=== PATIENT | male | born 1950 | race Caucasian/White ===

== ENCOUNTER → 2017-01-25 | Outpatient (CLI) | payer OTHER ==
[2016-03-12 15:10] VITALS: BP 110/68
[~2017-01-25] MED LIST: AMIT50TA PO; ASPI-482 PO; COLE1TAB2 PO; DAPA5TAB PO; DEXL60CA PO; DULA1.5P SQ; GLYB1TAB10 PO; HYDR-2679 PO; LISI1TAB7 PO; METF500T4 PO; SERT50TA8 PO; [UNRECOGNIZED DRUG - OTHER]
[2017-01-25 09:49] LABS: CALCIUM 9.1 mg/dL (8.5-10.1); CREATININE 0.7 mg/dL (0.7-1.3); GFR 113.5; POTASSIUM 3.5 mmol/L (3.5-5.1)
[2017-01-25 09:51] LABS: CHOLESTEROL/HDL RATIO 3.1
== END | disposition home or self-care (01) ==
LOC: LAB 09:09
PROVIDERS: ATTEND Family Medicine
DX: E11.9 Type 2 diabetes mellitus without complications (principal)
CPT/HCPCS: 36415; 80048; 80061; 83036

== ENCOUNTER → 2017-04-27 | Outpatient (CLI) | payer OTHER ==
[2016-03-12 15:10] VITALS: BP 110/68
[~2017-04-27] MED LIST changes: +GADOBUTROL 10 MMOL/10 ML VIAL IV ONE; -GLYB1TAB10 PO; +GLYB1TAB15 PO
[2017-04-27 13:46] LABS: CREATININE 0.9 mg/dL (0.7-1.3)
--- NOTE | 2017-04-27 14:53 | RAD ---
MR BRAIN HISTORY: DIPLOPIA X 3 WEEKS WITH WORSENING HEADACHES, RIGHT EYE DISCOMFORT, NO SX HX, PRIOR MRI, 9ML GADAVIST COMPARISON: 02/19/2015 MRI brain TECHNIQUE: Axial diffusion weighted imaging was obtained. Additional sagittal T1, axial T1, axial FLAIR, and axial T2 weighted imaging of the brain was also performed. FINDINGS: There are scattered foci of T2/FLAIR signal hyperintensity throughout the periventricular and deep hemispheric white matter bilaterally. This is nonspecific but most likely related to chronic small vessel ischemic disease. No evidence of acute intracranial hemorrhage. No restricted diffusion to indicate acute infarct. No extra-axial fluid collections. No midline shift or mass effect. Ventricular size is appropriate. Midline structures have a normal anatomic configuration. Basal cisterns are patent. Arterial flow voids at the skull base and major dural venous sinuses are maintained. Globes and orbits are unremarkable. Paranasal sinuses and mastoid air cells are clear. IMPRESSION: No acute or recent infarct. No abnormal enhancement or mass. Electronically signed by: Marshall Kingsley MD (04/27/2017 2:50 PM)
== END | disposition home or self-care (01) ==
LOC: MRI 12:47
PROVIDERS: ATTEND Otolaryngology Plastic Surgery within the Head & Neck
DX: H53.2 Diplopia (principal)
CPT/HCPCS: 36415; 70553; 82565; A9585

== ENCOUNTER → 2017-06-01 | Outpatient (CLI) | payer OTHER ==
[2016-03-12 15:10] VITALS: BP 110/68
[~2017-06-01] MED LIST changes: -DEXL60CA PO; +DEXL60CA2 PO; -GADOBUTROL 10 MMOL/10 ML VIAL IV ONE
[2017-06-01 09:34] LABS: ALBUMIN 3.7 g/dL (3.4-5.0); ALBUMIN/GLOBULIN RATIO 0.9 (1.0-1.7); CALCIUM 8.3 mg/dL (8.5-10.1); CREATININE 0.7 mg/dL (0.7-1.3); GFR 113.5; POTASSIUM 3.7 mmol/L (3.5-5.1); TOTAL BILIRUBIN 1.3 mg/dL (0.2-1.0); TOTAL PROTEIN 7.8 g/dL (6.4-8.2)
== END | disposition home or self-care (01) ==
LOC: LAB 08:56
PROVIDERS: ATTEND Family Medicine
DX: E11.9 Type 2 diabetes mellitus without complications (principal)
CPT/HCPCS: 36415; 80053; 83036

== ENCOUNTER → 2017-06-22 | Outpatient (CLI) | payer OTHER ==
[2016-03-12 15:10] VITALS: BP 110/68
[2017-06-22 09:45] LABS: BASO % 0 % (0-3); EOS % 1 % (0-3); HEMATOCRIT 43.3 % (39.0-53.0); HEMOGLOBIN 14.7 g/dL (13.0-17.5); LYMPH # 1.5 x10^3/uL (1.0-4.8); LYMPH % 24 % (24-48); MEAN CORPUSCULAR HEMOGLOBIN 29 pg (25-35); MEAN CORPUSCULAR HGB CONC 34 g/dL (31-37); MEAN CORPUSCULAR VOLUME 84 fL (79-100); MONO % 8 % (0-9); NEUT % 67 % (31-73); PLATELET COUNT 134 x10^3/uL (140-400); RED BLOOD COUNT 5.15 x10^6/uL (4.30-5.70); RED CELL DISTRIBUTION WIDTH 15.5 % (11.5-14.5)
[2017-06-22 09:53] LABS: WHITE BLOOD COUNT 6.4 x10^3/uL (4.0-11.0)
[2017-06-22 10:09] LABS: CALCIUM 8.6 mg/dL (8.5-10.1); CREATININE 0.7 mg/dL (0.7-1.3); GFR 113.5; POTASSIUM 3.7 mmol/L (3.5-5.1); TOTAL BILIRUBIN 1.2 mg/dL (0.2-1.0)
--- NOTE | 2017-06-22 11:25 | RAD ---
Indication: Worsening headaches Technique: Study is dated June 22, 2017. 3-D time of flight MRA of the [place] of [place] was performed without contrast. Source and MIP reconstructed images were reviewed. Comparison is an MRI brain from April 27, 2013. Findings: The visualized internal carotid arteries are normal in caliber without focal stenosis. The bilateral anterior and middle cerebral arteries are normal in caliber without focal stenosis or aneurysm. The vertebral, basilar, and posterior cerebral arteries are normal in caliber without focal stenosis or aneurysm. There is a origin of the left posterior cerebral artery. Impression: Normal intracranial MRA. Electronically signed by: Tito Jackson MD (06/22/2017 11:22 AM) [facility]
[2017-06-22 18:21] LABS: HIV ANTIBODY Non Reactive (Non Reactive)
== END | disposition home or self-care (01) ==
LOC: MRI 09:08
PROVIDERS: ATTEND Psychiatry & Neurology Neuromuscular Medicine
DX: G43.919 Migraine, unspecified, intractable, without status migrainosus (principal)
CPT/HCPCS: 70544; 80053; 82607; 84443; 85027; 85651; 86701; 86702; 86703; 87535

== ENCOUNTER → 2017-09-02 | Outpatient (CLI) | payer OTHER ==
[2016-03-12 15:10] VITALS: BP 110/68
[2017-09-02 10:26] LABS: ALBUMIN 3.7 g/dL (3.4-5.0); ALBUMIN/GLOBULIN RATIO 0.9 (1.0-1.7); CALCIUM 8.7 mg/dL (8.5-10.1); CREATININE 0.7 mg/dL (0.7-1.3); GFR 113.5; POTASSIUM 3.9 mmol/L (3.5-5.1); TOTAL BILIRUBIN 1.2 mg/dL (0.2-1.0); TOTAL PROTEIN 7.9 g/dL (6.4-8.2)
== END | disposition home or self-care (01) ==
LOC: LAB 09:31
PROVIDERS: ATTEND Family Medicine
DX: E11.9 Type 2 diabetes mellitus without complications (principal)
CPT/HCPCS: 36415; 80053; 83036

== ENCOUNTER → 2017-10-26 | Outpatient (CLI) | payer OTHER ==
[2016-03-12 15:10] VITALS: BP 110/68
[2017-10-26 09:40] LABS: ALBUMIN 3.7 g/dL (3.4-5.0); ALBUMIN/GLOBULIN RATIO 0.9 (1.0-1.7); CALCIUM 9.1 mg/dL (8.5-10.1); CREATININE 0.6 mg/dL (0.7-1.3); GFR 135.6; POTASSIUM 3.9 mmol/L (3.5-5.1); TOTAL PROTEIN 7.9 g/dL (6.4-8.2)
== END | disposition home or self-care (01) ==
LOC: LAB 09:04
PROVIDERS: ATTEND Family Medicine
DX: I10 Essential (primary) hypertension (principal); E11.39 Type 2 diabetes mellitus with other diabetic ophthalmic complication
CPT/HCPCS: 36415; 80053; 83036

== ENCOUNTER → 2017-11-18 | Outpatient (CLI) | payer OTHER | END | disposition home or self-care (01) | LOC: ECHO 13:51 | DX: R01.1 Cardiac murmur, unspecified (principal) | CPT/HCPCS: 93306 ==

== ENCOUNTER → 2018-02-03 | Outpatient (CLI) | payer OTHER ==
[2018-02-03 09:13] LABS: ADD MAN DIFF? NO
[2018-02-03 09:17] LABS: BASO % 1 % (0-3); EOS # 0.1 x10^3/uL (0.0-0.7); EOS % 1 % (0-3); HEMATOCRIT 40.9 % (39.0-53.0); HEMOGLOBIN 13.7 g/dL (13.0-17.5); LYMPH # 1.7 x10^3/uL (1.0-4.8); LYMPH % 33 % (24-48); MEAN CORPUSCULAR HEMOGLOBIN 29 pg (25-35); MEAN CORPUSCULAR HGB CONC 34 g/dL (31-37); MEAN CORPUSCULAR VOLUME 85 fL (79-100); MONO # 0.5 x10^3/uL (0.0-1.1); MONO % 10 % (0-9); NEUT # 2.8 x10^3uL (1.8-7.7); NEUT % 56 % (31-73); PLATELET COUNT 142 x10^3/uL (140-400); RED BLOOD COUNT 4.83 x10^6/uL (4.30-5.70); RED CELL DISTRIBUTION WIDTH 15.8 % (11.5-14.5); WHITE BLOOD COUNT 5.1 x10^3/uL (4.0-11.0)
[2018-02-03 09:36] LABS: ALBUMIN 3.5 g/dL (3.4-5.0); ALBUMIN/GLOBULIN RATIO 0.8 (1.0-1.7); ALK PHOS 111 U/L (46-116); ALT (SGPT) 61 U/L (16-63); ANION GAP 8 (6-14); AST (SGOT) 55 U/L (15-37); BLOOD UREA NITROGEN 15 mg/dL (8-26); BUN/CREATININE RATIO 21 (6-20); CALCIUM 9.2 mg/dL (8.5-10.1); CARBON DIOXIDE 27 mmol/L (21-32); CHLORIDE 104 mmol/L (98-107); CHOLESTEROL 116 mg/dL (0-200); CHOLESTEROL/HDL RATIO 3.2; CREATININE 0.7 mg/dL (0.7-1.3); GFR 113.2; GLUCOSE 140 mg/dL (70-99); HDLC 36 mg/dL (40-60); LDLC 55 mg/dL (0-100); NON-HDL CHOLESTEROL 80 mg/dL (0-129); POTASSIUM 3.9 mmol/L (3.5-5.1); SODIUM 139 mmol/L (136-145); TOTAL BILIRUBIN 1.1 mg/dL (0.2-1.0); TRIGLYCERIDES 124 mg/dL (0-150); VLDLC 25 mg/dL (0-40)
[2018-02-03 10:09] LABS: PROSTATE SPECIFIC ANTIGEN 0.48 ng/mL (0.00-4.00)
[2018-02-04 00:13] LABS: HEMOGLOBIN A1C 5.6 % (4.8-5.6)
== END | disposition home or self-care (01) ==
LOC: LAB 08:58
DX: Z12.5 Encounter for screening for malignant neoplasm of prostate (principal); E11.9 Type 2 diabetes mellitus without complications; I10 Essential (primary) hypertension
CPT/HCPCS: 36415; 80053; 80061; 83036; 85025; G0103

== ENCOUNTER → 2018-04-29 | Outpatient (CLI) | payer OTHER ==
[2018-04-29 10:01] LABS: ANION GAP 13 (6-14); BLOOD UREA NITROGEN 15 mg/dL (8-26); CARBON DIOXIDE 22 mmol/L (21-32); CHLORIDE 101 mmol/L (98-107); CREATININE 0.7 mg/dL (0.7-1.3); GFR 113.2; GLUCOSE 163 mg/dL (70-99); POTASSIUM 3.5 mmol/L (3.5-5.1); SODIUM 136 mmol/L (136-145)
[2018-04-30 02:17] LABS: HEMOGLOBIN A1C 6.6 % (4.8-5.6)
== END | disposition home or self-care (01) ==
LOC: LAB 09:23
DX: E11.9 Type 2 diabetes mellitus without complications (principal); I10 Essential (primary) hypertension
CPT/HCPCS: 36415; 80048; 83036

== ENCOUNTER → 2018-08-10 | Outpatient (CLI) | payer OTHER ==
[2016-03-12 15:10] VITALS: BP 110/68
[~2018-08-10] MED LIST changes: +GLYB-102 PO; -GLYB1TAB15 PO; +METF500T16 PO; -METF500T4 PO
[2018-08-10 09:48] LABS: CALCIUM 8.9 mg/dL (8.5-10.1); CREATININE 0.6 mg/dL (0.7-1.3); GFR 135.2; POTASSIUM 3.9 mmol/L (3.5-5.1)
[2018-08-11 03:16] LABS: HEMOGLOBIN A1C 6.2 % (4.8-5.6)
== END | disposition home or self-care (01) ==
LOC: LAB 09:18
PROVIDERS: ATTEND Family Medicine
DX: I10 Essential (primary) hypertension (principal); E11.9 Type 2 diabetes mellitus without complications; E55.9 Vitamin D deficiency, unspecified; E78.5 Hyperlipidemia, unspecified; E78.00 Pure hypercholesterolemia, unspecified; E87.6 Hypokalemia; G43.909 Migraine, unspecified, not intractable, without status migrainosus; K21.9 Gastro-esophageal reflux disease without esophagitis; Z86.010 Personal history of colon polyps; Z88.0 Allergy status to penicillin; Z82.49 Family history of ischemic heart disease and other diseases of the circulatory system; Z83.3 Family history of diabetes mellitus
CPT/HCPCS: 36415; 80048; 83036

== ENCOUNTER 2018-09-13 08:46 | Emergency (ER) | payer MEDICARE, OTHER ==
[~2018-09-13] VITALS: Ht 170.2 cm; Wt 95.3 kg
[2018-09-13] MEDS ORDERED: fentaNYL PF VIAL 100 MCG/2 ML VIAL IV ONE (09:00)
[2018-09-13 09:26] LABS: BASO % 1 % (0-3); EOS % 2 % (0-3); HEMATOCRIT 34.2 % (39.0-53.0); HEMOGLOBIN 11.8 g/dL (13.0-17.5); LYMPH % 30 % (24-48); MEAN CORPUSCULAR HEMOGLOBIN 30 pg (25-35); MEAN CORPUSCULAR HGB CONC 35 g/dL (31-37); MEAN CORPUSCULAR VOLUME 85 fL (79-100); MONO # 0.3 x10^3/uL (0.0-1.1); MONO % 9 % (0-9); NEUT # 1.9 x10^3uL (1.8-7.7); NEUT % 59 % (31-73); PLATELET COUNT 97 x10^3/uL (140-400); RED BLOOD COUNT 4.01 x10^6/uL (4.30-5.70); RED CELL DISTRIBUTION WIDTH 16.3 % (11.5-14.5); WHITE BLOOD COUNT 3.3 x10^3/uL (4.0-11.0)
[2018-09-13 09:32] LABS: CALCIUM 8.4 mg/dL (8.5-10.1); CREATININE 0.7 mg/dL (0.7-1.3); GFR 113.2; POTASSIUM 3.7 mmol/L (3.5-5.1)
[2018-09-13 09:38] LABS: ALBUMIN 3.3 g/dL (3.4-5.0); ALBUMIN/GLOBULIN RATIO 0.8 (1.0-1.7); TOTAL BILIRUBIN 1.1 mg/dL (0.2-1.0); TOTAL PROTEIN 7.3 g/dL (6.4-8.2)
[2018-09-13] MEDS ORDERED: METH4TAB2 PO (09:51)
--- NOTE | 2018-09-13 09:52 | PHYS DOC ---
Past Medical History Past Medical History: Diabetes-Type II, Hypertension Past Surgical History: Other Additional Past Surgical Histo: BILATERAL CATARACT SX Alcohol Use: Rarely Drug Use: None Adult General Chief Complaint Chief Complaint: BACK PAIN OR INJURY HPI HPI Patient is a 67 year old male who presents with right lower back pain. The patient states that he was carrying a bucket of water to his fire pit when he felt it hold in his back. He does have a history of sciatica. He also has a history of bulging disks. He denies any point spinal tenderness. He states that the pain is radiating in through his buttock and down into his leg. He states that this morning the pain got severe enough that he could not get out of bed. He day he did call EMS to have him transported to the hospital. The patient does take hydrocodone regularly at home for pain. Review of Systems Review of Systems Constitutional: Denies fever or chills [] Respiratory: Denies cough or shortness of breath [] Cardiovascular: No additional information not addressed in HPI [] GI: Denies abdominal pain, nausea, vomiting, bloody stools or diarrhea [] : Denies dysuria or hematuria [] Musculoskeletal: See history of present illness Integument: Denies rash or skin lesions [] Neurologic: Denies headache, focal weakness or sensory changes [] Endocrine: Denies polyuria or polydipsia [] All other systems were reviewed and found to be within normal limits, except as documented in this note. Current Medications Current Medications Current Medications Medications (Trade) Dose Ordered Sig/[facility] Start Time Stop Time Status Last Admin Dose Admin Fentanyl Citrate (Fentanyl 2ml Vial) 75 mcg 1X ONCE 09/13/18 09:00 09/13/18 09:02 DC 09/13/18 09:35 75 MCG Ketorolac Tromethamine (Toradol Im) 60 mg 1X ONCE 09/13/18 10:00 09/13/18 10:01 DC 09/13/18 11:01 60 MG Morphine Sulfate (Morphine Sulfate) 5 mg 1X ONCE 09/13/18 14:15 09/13/18 14:16 DC 09/13/18 14:15 5 MG Ondansetron HCl (Zofran) 4 mg 1X ONCE 09/13/18 12:30 09/13/18 13:44 DC 09/13/18 15:05 4 MG Oxycodone/ Acetaminophen (Percocet 10/325) 1 tab 1X ONCE 09/13/18 15:00 09/13/18 15:01 DC 09/13/18 15:06 1 TAB Allergies Allergies Allergies Coded Allergies Type Severity Reaction Last Updated Verified Penicillins Allergy Severe Anaphylaxis 03/12/16 Yes Physical Exam Physical Exam Constitutional: Well developed, well nourished, no acute distress, non-toxic appearance. [] Neck: Normal range of motion, no tenderness, supple, no stridor. [] Cardiovascular:Heart rate regular rhythm, no murmur [] Lungs & Thorax: Bilateral breath sounds clear to auscultation [] Skin: Warm, dry, no erythema, no rash. [] Back: No point spinal tenderness, right CVA tenderness. [] Extremities: No tenderness, no cyanosis, no clubbing, ROM intact, no edema. [] Neurologic: Alert and oriented X 3, normal motor function, normal sensory function, no focal deficits noted. [] Psychologic: Affect normal, judgement normal, mood normal. [] Current Patient Data Vital Signs Vital Signs Date Time Temp Pulse Resp B/P (MAP) Pulse Ox O2 Delivery O2 Flow Rate FiO2 09/13/18 15:06 18 98 Room Air 09/13/18 14:30 78 128/64 (85) Lab Values Laboratory Tests Test 09/13/18 09:13 White Blood Count 3.3 x10^3/uL (4.0-11.0) L Red Blood Count 4.01 x10^6/uL (4.30-5.70) L Hemoglobin 11.8 g/dL (13.0-17.5) L Hematocrit 34.2 % (39.0-53.0) L Mean Corpuscular Volume 85 fL (79-100) Mean Corpuscular Hemoglobin 30 pg (25-35) Mean Corpuscular Hemoglobin Concent 35 g/dL (31-37) Red Cell Distribution Width 16.3 % (11.5-14.5) H Platelet Count 97 x10^3/uL (140-400) L Neutrophils (%) (Auto) 59 % (31-73) Lymphocytes (%) (Auto) 30 % (24-48) Monocytes (%) (Auto) 9 % (0-9) Eosinophils (%) (Auto) 2 % (0-3) Basophils (%) (Auto) 1 % (0-3) Neutrophils # (Auto) 1.9 x10^3uL (1.8-7.7) Lymphocytes # (Auto) 1.0 x10^3/uL (1.0-4.8) Monocytes # (Auto) 0.3 x10^3/uL (0.0-1.1) Eosinophils # (Auto) 0.0 x10^3/uL (0.0-0.7) Basophils # (Auto) 0.0 x10^3/uL (0.0-0.2) Sodium Level 141 mmol/L (136-145) Potassium Level 3.7 mmol/L (3.5-5.1) Chloride Level 104 mmol/L (98-107) Carbon Dioxide Level 23 mmol/L (21-32) Anion Gap 14 (6-14) Blood Urea Nitrogen 15 mg/dL (8-26) Creatinine 0.7 mg/dL (0.7-1.3) Estimated GFR (Cockcroft-Gault) 113.2 BUN/Creatinine Ratio 21 (6-20) H Glucose Level 178 mg/dL (70-99) H Calcium Level 8.4 mg/dL (8.5-10.1) L Total Bilirubin 1.1 mg/dL (0.2-1.0) H Aspartate Amino Transferase (AST) 58 U/L (15-37) H Alanine Aminotransferase (ALT) 53 U/L (16-63) Alkaline Phosphatase 118 U/L (46-116) H Total Protein 7.3 g/dL (6.4-8.2) Albumin 3.3 g/dL (3.4-5.0) L Albumin/Globulin Ratio 0.8 (1.0-1.7) L Laboratory Tests 09/13/18 09:13 Laboratory Tests 09/13/18 09:13 EKG EKG [] Radiology/Procedures Radiology/Procedures []PATIENT: EMILIANO JACOBO LACCOUNT: [id number]#: [id number] : 1950 LOCATION: ER AGE: 67 SEX: M EXAM STATUS: REG ER ORD. PHYSICIAN: MAYNOR LUKE APRN REASON: pain after lifting water bucket PROCEDURE: CT LUMBAR SPINE WO CONTRAST EXAM: CT lumbar spine without IV contrast CLINICAL HISTORY:INJURED LIFTING A WATER BUCKET. COMPARISON: None available. TECHNIQUE: Helical CT was performed through the lumbar spine. Axial, coronal and sagittal reformatted images were generated. PQRS compliance statement - One or more of the following individualized dose reduction techniques were utilized for this study: 1. Automated exposure control 2. Adjustment of the mA and/or kV according to patient size 3. Use of iterative reconstruction technique FINDINGS: There are 5 nonrib-bearing lumbar-type vertebral bodies. Vertebral body heights are preserved. Mild L1-2 intervertebral disc height loss. Small anterior endplate osteophytes are seen at multiple levels. No spondylolisthesis. Unilateral left L5 pars defect is seen. No definite right L5 pars defect. A right L4 pars defects is also incidentally seen. These are chronic. T12-L1: No significant central canal stenosis or neural foraminal narrowing. L1-L2: Diffuse circumferential disc bulge, ligamentum flavum hypertrophy and mild flattening of the ventral thecal sac mild central canal stenosis, and mild bilateral neural foraminal narrowing. L2-L3: No significant central canal stenosis or neural foraminal narrowing. L3-L4: Mild diffuse circumferential disc bulge causes mild flattening of the central canal with mild left and moderate right neural foraminal narrowing. L4-L5: Diffuse circumferential disc bulge, eccentric to the left, ligamentum flavum hypertrophy and facet degenerative changes cause mild central canal stenosis and mild bilateral neural foraminal narrowing. L5-S1: No significant central canal stenosis or neural foraminal narrowing. IMPRESSION: 1. No evidence for acute fracture or subluxation. 2. Chronic left L5 and right L4 pars defects without listhesis. 3. Multilevel degenerative change as above, most prominent at L1-2 Electronically signed by: Jose Rodriguez MD (09/13/2018 12:46 PM) [facility] DICTATED and SIGNED BY: JOSE RODRIGUEZ MD DATE: 09/13/18 123 Course & Med Decision Making Course & Med Decision Making Pertinent Labs and Imaging studies reviewed. (See chart for details) []He patient was given IV and oral pain medication in the emergency department. Dragon Disclaimer Dragon Disclaimer This electronic medical record was generated, in whole or in part, using a voice recognition dictation system. Departure Departure Impression: Primary Impression: Sciatica Disposition: 01 HOME, SELF-CARE Condition: STABLE Referrals: Bobo BURLESON MD (PCP) Patient Instructions: Sciatica Additional Instructions: Take the medication as directed. Watch your blood sugars very closely while on this medication. Follow-up with your primary care provider in one week for recheck or return to the emergency department if worsening. Scripts Oxycodone/Apap 5-325 (PERCOCET 5-325 MG TABLET) 1 Each Tablet 1 TAB PO PRN Q6HRS PRN for PAIN, #14 TAB 0 Refills Prov: MAYNOR LUKE APRN 09/13/18 Methylprednisolone (MEDROL) 4 Mg Tab.ds.pk 1 PKG PO UD, #1 PKG Prov: MAYNOR LUKE APRN 09/13/18 MAYNOR LUKE APRN Sep 13, 2018 09:52
[2018-09-13] MEDS ORDERED: KETOROLAC 60 MG/2 ML INJ. IM ONE (10:00)
[2018-09-13] MEDS ORDERED: MORPHINE SULFATE 10 MG/ML VIAL. IV ONE ×2 (11:00→14:15)
[2018-09-13] MEDS ORDERED: oxyCODONE/APAP 10/325 1 TAB TABLET PO ONE ×2 (11:15→15:00)
[2018-09-13] MEDS ORDERED: ONDANSETRON PF 4 MG/2 ML VIAL. ONE (11:22)
[2018-09-13] MEDS ORDERED: ONDANSETRON PF 4 MG/2 ML VIAL. IV ONE (12:30)
--- NOTE | 2018-09-13 12:58 | RAD ---
EXAM: CT lumbar spine without IV contrast CLINICAL HISTORY:INJURED LIFTING A WATER BUCKET. COMPARISON: None available. TECHNIQUE: Helical CT was performed through the lumbar spine. Axial, coronal and sagittal reformatted images were generated. PQRS compliance statement - One or more of the following individualized dose reduction techniques were utilized for this study: 1. Automated exposure control 2. Adjustment of the mA and/or kV according to patient size 3. Use of iterative reconstruction technique FINDINGS: There are 5 nonrib-bearing lumbar-type vertebral bodies. Vertebral body heights are preserved. Mild L1-2 intervertebral disc height loss. Small anterior endplate osteophytes are seen at multiple levels. No spondylolisthesis. Unilateral left L5 pars defect is seen. No definite right L5 pars defect. A right L4 pars defects is also incidentally seen. These are chronic. T12-L1: No significant central canal stenosis or neural foraminal narrowing. L1-L2: Diffuse circumferential disc bulge, ligamentum flavum hypertrophy and mild flattening of the ventral thecal sac mild central canal stenosis, and mild bilateral neural foraminal narrowing. L2-L3: No significant central canal stenosis or neural foraminal narrowing. L3-L4: Mild diffuse circumferential disc bulge causes mild flattening of the central canal with mild left and moderate right neural foraminal narrowing. L4-L5: Diffuse circumferential disc bulge, eccentric to the left, ligamentum flavum hypertrophy and facet degenerative changes cause mild central canal stenosis and mild bilateral neural foraminal narrowing. L5-S1: No significant central canal stenosis or neural foraminal narrowing. IMPRESSION: 1. No evidence for acute fracture or subluxation. 2. Chronic left L5 and right L4 pars defects without listhesis. 3. Multilevel degenerative change as above, most prominent at L1-2 Electronically signed by: Jose Murray MD (09/13/2018 12:46 PM) [facility]
[2018-09-13] MEDS ORDERED: OXYC-323 PO (14:08)
[2018-09-13 14:30] VITALS: BP 128/64
== END 2018-09-13 15:14 | disposition home or self-care (01) ==
LOC: ER 08:46
DX: M54.30 Sciatica, unspecified side (principal); I10 Essential (primary) hypertension; E11.9 Type 2 diabetes mellitus without complications; Z88.0 Allergy status to penicillin
CPT/HCPCS: 36415; 72131; 80053; 85025; 96372; 96374; 96375; 96376; 99285; J1885; J2270; J2405; J3010

== ENCOUNTER 2018-10-17 10:13 | Day surgery (SDC) | payer OTHER, MEDICARE ==
[~2018-10-17 10:13] MED LIST changes: +ASPI-630 PO; +HYDROmorphone 2 MG/ML VIAL IV PRN; +IV RINGERS,LACTATED 1000ML 1,000 ML IV SCH; +LIDOCAINE 1% PF 2 ML VIAL. ID PRN; +LISI1TAB5 PO; +METH4TAB2 PO; +MORPHINE SULFATE 2 MG/ML VIAL. IV PRN; +ONDANSETRON PF 4 MG/2 ML VIAL. IV PRN; +OXYC1TAB15 PO; +PROCHLORPERAZINE 10 MG/2 ML VIAL. IV PRN; +fentaNYL PF VIAL 100 MCG/2 ML VIAL IV PRN
[2018-10-17 10:38] LABS: BASO % 1 % (0-3); EOS % 1 % (0-3); HEMATOCRIT 35.9 % (39.0-53.0); HEMOGLOBIN 12.1 g/dL (13.0-17.5); LYMPH # 1.4 x10^3/uL (1.0-4.8); LYMPH % 33 % (24-48); MEAN CORPUSCULAR HEMOGLOBIN 28 pg (25-35); MEAN CORPUSCULAR HGB CONC 34 g/dL (31-37); MEAN CORPUSCULAR VOLUME 84 fL (79-100); MONO # 0.4 x10^3/uL (0.0-1.1); MONO % 9 % (0-9); NEUT # 2.3 x10^3uL (1.8-7.7); NEUT % 57 % (31-73); PLATELET COUNT 108 x10^3/uL (140-400); RED BLOOD COUNT 4.26 x10^6/uL (4.30-5.70); RED CELL DISTRIBUTION WIDTH 15.7 % (11.5-14.5); WHITE BLOOD COUNT 4.1 x10^3/uL (4.0-11.0)
[2018-10-17] MEDS ORDERED: fentaNYL PF VIAL 100 MCG/2 ML VIAL ONE ×2 (11:24→14:08)
[2018-10-17] MEDS ORDERED: ROCURONIUM 100 MG/10 ML VIAL. ONE (11:24)
[2018-10-17] MEDS ORDERED: LIDOCAINE 2% PF Vial for OR 5 ML VIAL. ONE (11:24)
[2018-10-17] MEDS ORDERED: PROPOFOL 20 ML IV ONE (11:24)
[2018-10-17] MEDS ORDERED: PROPOFOL 100 ML IV ONE (12:18)
[2018-10-17] MEDS ORDERED: NEOMY/BACITR/POLYMYXIN OINT PACKET. TP ONE (12:20)
[2018-10-17] MEDS ORDERED: OXYMETAZOLINE 0.05% NASAL SPRAY 30ML BOTTLE. NS ONE (12:20)
[2018-10-17] MEDS ORDERED: LIDOCAINE 2%/EPI 1:100,000 20 ML VIAL. ONE (12:20)
[2018-10-17] MEDS ORDERED: GELATIN SPONGE SIZE 100. ONE (12:21)
[2018-10-17] MEDS ORDERED: COCAINE 4% TOPICAL SOLUTION TP ONE (12:49)
[2018-10-17] MEDS ORDERED: ONDANSETRON PF 4 MG/2 ML VIAL. ONE (13:02)
[2018-10-17] MEDS ORDERED: GLYCOPYRROLATE 1 MG/5 ML VIAL. ONE (13:02)
[2018-10-17] MEDS ORDERED: NEOSTIGMINE METHYLSULFATE 5 MG/5 ML SYRINGE. ONE (13:02)
--- NOTE | 2018-10-17 13:10 | DISCH ---
DISCHARGE WITH HOME HEALTH DISCHARGE INFORMATION: Condition on Discharge: Stable CODE STATUS: Code Status: Full HOME HEALTH: Face to Face: I certify this patient is under my care and that I, or a nurse practitioner or physician's senior court office assistant working with me, had a face to face encounter that meets the physician face to face encounter requirements with this patient on []. POST DISCHARGE ORDERS: Activity Instructions for Disc: Resume previous activity DIET AFTER DISCHARGE: Regular Wound/Incision Care: Reinforce dressing PRN, No wound care needed FOLLOW-UP: Follow up with: Abhay 1 week CERTIFICATION STATEMENT: Certification Statement: Certification Statement: Based on the above finding, I certify that this patient is confined to the home and needs intermittent longterm care, physical therapy and/or speech therapy, or continues to need occupational therapy.~ This patient is under my care, and I have initiated the establishment of the plan of care.~ This patient will be followed by myself or a community physician who will periodically review the plan of care. Home Meds Active Scripts Oxycodone/Apap 5-325 (PERCOCET 5-325 MG TABLET) 1 Each Tablet, 1 TAB PO PRN Q6HRS PRN for PAIN, #14 TAB 0 Refills Prov:MAYNOR LUKE Wendie CHORE WORKER 09/13/18 Reported Medications Aspirin (ASPIRIN) 81 Mg Tab.chew, 81 MG PO DAILY for HEART HEALTH, TAB.CHEW 10/12/18 Lisinopril/Hydrochlorothiazide (LISINOPRIL-HCTZ 20-12.5 MG TAB) 1 Each Tablet, 1 TAB PO DAILY for HYPERTENSION CONTROL, #90 TAB 3 Refills 10/12/18 Dapagliflozin Propanediol (FARXIGA) 5 Mg Tablet, 5 MG PO 02/26/16 Sertraline Hcl (SERTRALINE HCL) 50 Mg Tablet, 100 MG PO DAILY for ANTI- DEPRESSANT, TAB 0 Refills 02/26/16 Metformin Hcl (METFORMIN HCL) 500 Mg Tablet, 1000 MG PO BID92 for DIABETES CONTROL, TAB 0 Refills 11/18/15 Dulaglutide (Trulicity) 1.5 Mg/0.5 Ml Pen.injctr, 1.5 MG SQ WEEKLY for DIABETES CONTROL 11/18/15 Colestipol Hcl (COLESTIPOL HCL) 1 Gm Tablet, 1 GM PO BIDACLD for STOMACH ISSUES 01/03/14 Amitriptyline Hcl (AMITRIPTYLINE HCL) 50 Mg Tablet, 50 MG PO HS 01/03/14 Discontinued Reported Medications Hydrocodone/Acetaminophen (Lortab 7.5-325 mg Tablet) 1 Each Tablet, 1 TAB PO PRN Q6HRS PRN for PAIN, TAB 0 Refills 02/26/16 [asd fnnedfb ed ] No Conflict Check 01/03/14 Lisinopril/Hydrochlorothiazide (LISINOPRIL-HCTZ 20-25 MG TAB) 1 Each Tablet, 1 EACH PO DAILY 01/03/14 JADIEL PACE MD Oct 17, 2018 13:10
[2018-10-17] MEDS ORDERED: HYDR-3164 PO (13:12)
[2018-10-17] MEDS ORDERED: CLIN300C8 PO (13:14)
[2018-10-17] MEDS ORDERED: ASPI-630 PO (13:18)
[2018-10-17] MEDS ORDERED: HYDROcodone/APAP 5/325MG 1 TAB TABLET PO ONE (14:45)
[2018-10-17 15:30] VITALS: BP 121/63
--- NOTE | 2018-10-19 04:11 | CONS ---
DATE OF CONSULTATION: 10/17/2018 PREOPERATIVE DIAGNOSES: 1. Recurring epistaxis. 2. Septal deviation. POSTOPERATIVE DIAGNOSES: 1. Recurring epistaxis. 2. Septal deviation. PROCEDURE: Septoplasty. DESCRIPTION OF PROCEDURE: The patient was brought to the Operating Room and placed in the supine position. General anesthesia was obtained. Mask inhalation was provided. An oral endotracheal tube was inserted. The patient was scrubbed and draped for septoplasty, 1% lidocaine with 1:100,000 epinephrine was infiltrated in the septal mucosa bilaterally, 4% cocaine pledgets were placed intranasally. After anesthesia and decongestion were achieved, the pledgets were removed. The left nasal cavity was examined. He had a severe septal deviation to the right. There was prominent vascularity present on the septum on the right side. A Zack incision was made on the patient's left side. A submucoperichondrial plane was established on the left back to the rostrum. A transcartilaginous incision was made a centimeter posterior to nasal spine. A submucoperichondrial plane was established on the right. Deviated portions of cartilage and bone were removed from the nasal septum. The quadrangular cartilage was morcellized. ____ portions were used to reconstruct the septum. The Zack incision was closed. Prominent vascularity was present on the septum on the right side, was cauterized with suction cautery. The septum ____ bivalve splints. The patient was awoken from anesthesia and transferred to recovery stable. He will follow up with me in a week. He is to use Omnicef as an antibiotic, [place] for pain and report if significant bleeding. JADIEL PACE MD DR: LASHAE/stephen JOB#: [id number] / [id number]
--- NOTE | 2018-10-19 09:10 | OP ---
DATE OF SURGERY: 10/17/2018 PREOPERATIVE DIAGNOSES: 1. Recurring epistaxis. 2. Septal deviation. POSTOPERATIVE DIAGNOSES: 1. Recurring epistaxis. 2. Septal deviation. PROCEDURE: Septoplasty. DESCRIPTION OF PROCEDURE: The patient was brought to the Operating Room and placed in the supine position. General anesthesia was obtained. Mask inhalation was provided. An oral endotracheal tube was inserted. The patient was scrubbed and draped for septoplasty, 1% lidocaine with 1:100,000 epinephrine was infiltrated in the septal mucosa bilaterally, 4% cocaine pledgets were placed intranasally. After anesthesia and decongestion were achieved, the pledgets were removed. The left nasal cavity was examined. He had a severe septal deviation to the right. There was prominent vascularity present on the septum on the right side. A Zack incision was made on the patient's left side. A submucoperichondrial plane was established on the left back to the rostrum. A transcartilaginous incision was made a centimeter posterior to nasal spine. A submucoperichondrial plane was established on the right. Deviated portions of cartilage and bone were removed from the nasal septum. The quadrangular cartilage was morcellized. ____ portions were used to reconstruct the septum. The [place] incision was closed. Prominent vascularity was present on the septum on the right side, was cauterized with suction cautery. The septum ____ bivalve splints. The patient was awoken from anesthesia and transferred to recovery stable. He will follow up with me in a week. He is to use Omnicef as an antibiotic, [place] for pain and report if significant bleeding. JADIEL PACE MD DR: LASHAE/stephen JOB#: [id number] / [id number]
== END 2018-10-17 15:46 | disposition home or self-care (01) ==
LOC: SURG 10:13
PROVIDERS: ATTEND Otolaryngology Plastic Surgery within the Head & Neck
DX: J34.2 Deviated nasal septum (principal); Z88.0 Allergy status to penicillin; Z79.899 Other long term (current) drug therapy; Z79.82 Long term (current) use of aspirin
CPT/HCPCS: 30520; 36415; 82962; 85025; A7015; J2001; J2405; J2704; J2710; J3010; J3490

== ENCOUNTER → 2018-12-09 | Outpatient (CLI) | payer OTHER, MEDICARE ==
[~2018-12-09] MED LIST changes: +CLIN300C8 PO; +HYDR-3164 PO; -HYDROmorphone 2 MG/ML VIAL IV PRN; -IV RINGERS,LACTATED 1000ML 1,000 ML IV SCH; -LIDOCAINE 1% PF 2 ML VIAL. ID PRN; -MORPHINE SULFATE 2 MG/ML VIAL. IV PRN; -ONDANSETRON PF 4 MG/2 ML VIAL. IV PRN; -PROCHLORPERAZINE 10 MG/2 ML VIAL. IV PRN; -fentaNYL PF VIAL 100 MCG/2 ML VIAL IV PRN
[2018-12-09 10:55] LABS: BASO % 1 % (0-3); EOS % 1 % (0-3); HEMOGLOBIN 12.5 g/dL (13.0-17.5); LYMPH # 1.7 x10^3/uL (1.0-4.8); LYMPH % 30 % (24-48); MEAN CORPUSCULAR HEMOGLOBIN 28 pg (25-35); MEAN CORPUSCULAR HGB CONC 34 g/dL (31-37); MEAN CORPUSCULAR VOLUME 82 fL (79-100); MONO # 0.5 x10^3/uL (0.0-1.1); MONO % 9 % (0-9); NEUT # 3.4 x10^3uL (1.8-7.7); NEUT % 60 % (31-73); PLATELET COUNT 120 x10^3/uL (140-400); RED BLOOD COUNT 4.53 x10^6/uL (4.30-5.70); RED CELL DISTRIBUTION WIDTH 15.6 % (11.5-14.5); WHITE BLOOD COUNT 5.6 x10^3/uL (4.0-11.0)
[2018-12-09 11:10] LABS: ALBUMIN 3.5 g/dL (3.4-5.0); ALBUMIN/GLOBULIN RATIO 0.8 (1.0-1.7); CALCIUM 8.7 mg/dL (8.5-10.1); CREATININE 0.6 mg/dL (0.7-1.3); GFR 135.2; POTASSIUM 3.7 mmol/L (3.5-5.1); TOTAL PROTEIN 7.9 g/dL (6.4-8.2)
[2018-12-09 11:12] LABS: CHOLESTEROL/HDL RATIO 1.6
[2018-12-09 21:12] LABS: HEMOGLOBIN A1C 7.5 % (4.8-5.6)
== END | disposition home or self-care (01) ==
LOC: LAB 10:26
PROVIDERS: ATTEND Family Medicine
DX: Z12.5 Encounter for screening for malignant neoplasm of prostate (principal); E78.5 Hyperlipidemia, unspecified; E11.9 Type 2 diabetes mellitus without complications; I10 Essential (primary) hypertension; M19.90 Unspecified osteoarthritis, unspecified site; Z87.891 Personal history of nicotine dependence; Z79.84 Long term (current) use of oral hypoglycemic drugs
CPT/HCPCS: 36415; 80053; 80061; 83036; 85025; 85651; G0103

== ENCOUNTER → 2018-12-16 | Outpatient (CLI) | payer OTHER, MEDICARE ==
[~2018-12-16] MED LIST changes: +GADOBUTROL 10 MMOL/10 ML VIAL IV ONE
--- NOTE | 2018-12-16 12:13 | RAD ---
MRI Brain with and without contrast History: Worsening migraine headaches, history of benign tumor Technique: Multiplanar, multi sequential pre and postcontrast MR imaging was performed of the brain, dedicated images of internal auditory canals also obtained. Comparison: April 27, 2017 Findings: There is some motion degradation. There is no evidence of recent infarct or cytotoxic edema. Ventricular size is stable, proportionate to sulcal spaces. There is again mild generalized supratentorial involutional change.There is no significant midline shift, intraaxial mass effect, or focal abnormal extra-axial fluid collection. Scattered overall minimal foci of T2 and FLAIR hyperintense signal of the supratentorial parenchyma, largest of the left bennett radiata, are overall unchanged. There is no nodular parenchymal or leptomeningeal enhancement. There is preservation of the major intracranial flow-voids at the skull base. The cerebellar tonsils are normal in location. There is no significant abnormality of the pineal gland or pituitary gland. There is new air-fluid level left maxillary sinus, adjacent mild to moderate left maxillary sinus mucosal thickening. There is negligible bilateral ethmoid air cell mucosal thickening. There is stable nonenhancing likely cyst right retromaxillary region about 1.2 cm greatest dimension. The mastoid air cells are aerated. There is preserved marrow signal of the clivus. There is no enhancing mass of the cerebellopontine angles or the internal auditory canals. Impression: 1. Intracranial findings are stable, scattered nonspecific minimal T2 and FLAIR hyperintense signal which could be due to chronic microvascular ischemic disease. 2. There is now air-fluid level of the left maxillary sinus which may be seen with acute sinusitis, adjacent mucosal thickening. Electronically signed by: Haim Lincoln MD (12/16/2018 12:08 PM) [facility]
== END | disposition home or self-care (01) ==
LOC: MRI 10:00
PROVIDERS: ATTEND Family Medicine
DX: H61.22 Impacted cerumen, left ear (principal); D36.9 Benign neoplasm, unspecified site; G43.809 Other migraine, not intractable, without status migrainosus
CPT/HCPCS: 70553; A9585

== ENCOUNTER → 2018-12-22 | Outpatient (CLI) | payer OTHER, MEDICARE ==
[~2018-12-22] MED LIST changes: -GADOBUTROL 10 MMOL/10 ML VIAL IV ONE
--- NOTE | 2018-12-22 09:08 | RAD ---
Ultrasound abdomen complete 12/22/2018 CLINICAL INDICATION: Anemia, thrombocytopenia. COMPARISON: CT abdomen and pelvis 02/26/2016. FINDINGS: There is a micronodular contour to the surface of the liver. There is no discrete hepatic mass or fluid collection, though limited due to underlying mild heterogeneity. The abdominal aorta is not well visualized due to overlying bowel gas. The visualized proximal pancreas body unremarkable. Visualized upper IVC unremarkable. Cholecystectomy. No intra or extrahepatic biliary ductal dilatation with the common bile duct measuring 4 mm. Right kidney measures 12.7 cm in length without hydronephrosis or abnormal perinephric fluid collection. Mild splenic megaly measuring 14.8 cm in length. Left kidney measures 13.1 cm in length without hydronephrosis. There is a simple appearing cyst from the superior pole of the left kidney measuring up to 1.4 cm. IMPRESSION: 1. Cirrhosis and portal hypertension evidenced by mild splenic megaly. No evidence of abdominal ascites. 2. No discrete hepatic mass, though limited due to underlying heterogeneity. Recommend AFP levels and screening with MRI as it is more sensitive. Electronically signed by: Rajan Sharma MD (12/22/2018 9:03 AM) [facility]
== END | disposition home or self-care (01) ==
LOC: US 07:08
PROVIDERS: ATTEND Family Medicine
DX: K76.6 Portal hypertension (principal); K74.60 Unspecified cirrhosis of liver; R16.1 Splenomegaly, not elsewhere classified; N28.1 Cyst of kidney, acquired; D64.9 Anemia, unspecified; D69.6 Thrombocytopenia, unspecified; Z90.49 Acquired absence of other specified parts of digestive tract
CPT/HCPCS: 76700

== ENCOUNTER → 2018-12-28 | Outpatient (CLI) | payer OTHER, MEDICARE ==
[2018-12-28 12:21] LABS: PROTHROMBIN TIME PATIENT 16.2 SEC (11.7-14.0)
== END | disposition home or self-care (01) ==
LOC: LAB 11:31
PROVIDERS: ATTEND Family Medicine
DX: K74.60 Unspecified cirrhosis of liver (principal); I10 Essential (primary) hypertension; E78.00 Pure hypercholesterolemia, unspecified; M19.90 Unspecified osteoarthritis, unspecified site; E11.9 Type 2 diabetes mellitus without complications; Z90.89 Acquired absence of other organs; Z87.891 Personal history of nicotine dependence
CPT/HCPCS: 36415; 82105; 85610; 86705; 86709; 86803; 87340

== ENCOUNTER → 2019-02-10 | Outpatient (CLI) | payer MEDICARE, OTHER | END | disposition home or self-care (01) | LOC: LAB 09:26 | PROVIDERS: ATTEND Internal Medicine Gastroenterology | DX: K74.60 Unspecified cirrhosis of liver (principal) | CPT/HCPCS: 36415; 82728; 83540; 83550 ==

== ENCOUNTER → 2019-02-22 | Day surgery (SDC) | payer OTHER, MEDICARE ==
[~2019-02-22] MED LIST changes: +HYDROmorphone 2 MG/ML VIAL IV PRN; +IV RINGERS,LACTATED 1000ML 1,000 ML IV SCH; +LIDOCAINE 1% PF 2 ML VIAL. ID PRN; +LIDOCAINE 2% PF 5 ML VIAL. ONE; +MORPHINE SULFATE 2 MG/ML VIAL. IV PRN; +ONDANSETRON PF 4 MG/2 ML VIAL. IV PRN; +PROCHLORPERAZINE 10 MG/2 ML VIAL. IV PRN; +PROPOFOL 40 ML IV ONE; +fentaNYL PF VIAL 100 MCG/2 ML VIAL IV PRN
[2019-02-22 07:51] VITALS: BP 113/59
--- NOTE | 2019-02-23 13:10 | PATHOLOGY ---
[facility] Accession Number: [id number] . 01 Material submitted: . MID TRANSVERSE COLON POLYP . 01 Clinical history: . Varices, Screening . 02 Diagnosis: Colon biopsies, mid transverse colon polyp: - Sessile serrated polyp/adenoma. (JPM:jose; 02/23/2019) QMS/02/23/2019 . 02 Comment: There is no high-grade dysplasia or evidence of malignancy. . 02 Electronically signed: . Demetrius Al MD, Pathologist NPI- [id number] . 01 Gross description: . Received in formalin labeled "Catracho Hsu, mid transverse colon polyp," are 2 segments of cook soft tissue measuring 0.9 x 0.3 x 0.2 cm in aggregate dimensions and ranging from 0.4 to 0.5 cm in maximum dimension. The specimen is submitted entirely in cassette A1. (TSD; 02/22/2019) TOB/TOB . 02 Pathologist provided ICD-10: D12.3 . 02 CPT . 882749 Specimen Comment: A courtesy copy of this report has been sent to Specimen Comment: [phone], . Specimen Comment: Report sent to / DR BURLESON Specimen Comment: A duplicate report has been generated due to demographic updates. Performed at: 01 [facility] [address] [facility] [address], [place] [id number] MD Stew Atwood MD Phone: [phone] Performed at: 02 [facility] [address] [place], [place] [id number] MD Demetrius Al MD Phone: [phone]
== END | disposition home or self-care (01) ==
LOC: SURG 05:58
PROVIDERS: ATTEND Internal Medicine Gastroenterology
DX: Z12.11 Encounter for screening for malignant neoplasm of colon (principal); D12.3 Benign neoplasm of transverse colon; K64.0 First degree hemorrhoids; K29.70 Gastritis, unspecified, without bleeding; K76.6 Portal hypertension; K31.89 Other diseases of stomach and duodenum; K74.60 Unspecified cirrhosis of liver; Z86.010 Personal history of colon polyps; Z88.0 Allergy status to penicillin; F41.9 Anxiety disorder, unspecified; I10 Essential (primary) hypertension; E11.9 Type 2 diabetes mellitus without complications; M19.90 Unspecified osteoarthritis, unspecified site; Z83.71 Family history of colonic polyps; Z83.3 Family history of diabetes mellitus; Z82.49 Family history of ischemic heart disease and other diseases of the circulatory system; Z87.891 Personal history of nicotine dependence; Z79.899 Other long term (current) drug therapy; Z79.84 Long term (current) use of oral hypoglycemic drugs; Z90.49 Acquired absence of other specified parts of digestive tract; Z98.890 Other specified postprocedural states; F10.10 Alcohol abuse, uncomplicated
CPT/HCPCS: 43235; 45380; 82962; 88305; J2001; J2704

== ENCOUNTER → 2019-04-24 | Outpatient (CLI) | payer OTHER, MEDICARE ==
[2019-02-22 07:51] VITALS: BP 113/59
[~2019-04-24] MED LIST changes: -HYDROmorphone 2 MG/ML VIAL IV PRN; -IV RINGERS,LACTATED 1000ML 1,000 ML IV SCH; -LIDOCAINE 1% PF 2 ML VIAL. ID PRN; -LIDOCAINE 2% PF 5 ML VIAL. ONE; -MORPHINE SULFATE 2 MG/ML VIAL. IV PRN; -ONDANSETRON PF 4 MG/2 ML VIAL. IV PRN; -PROCHLORPERAZINE 10 MG/2 ML VIAL. IV PRN; -PROPOFOL 40 ML IV ONE; -fentaNYL PF VIAL 100 MCG/2 ML VIAL IV PRN
[2019-04-24 10:54] LABS: CALCIUM 8.9 mg/dL (8.5-10.1); CREATININE 0.6 mg/dL (0.7-1.3); GFR 134.8; POTASSIUM 4.1 mmol/L (3.5-5.1)
== END | disposition home or self-care (01) ==
LOC: LAB 10:04
PROVIDERS: ATTEND Family Medicine
DX: E11.9 Type 2 diabetes mellitus without complications (principal); I10 Essential (primary) hypertension
CPT/HCPCS: 36415; 80048; 83036

== ENCOUNTER → 2019-06-14 | Outpatient (CLI) | payer OTHER ==
[2019-02-22 07:51] VITALS: BP 113/59
[2019-06-14 12:24] LABS: BASO % 1 % (0-3); EOS % 0 % (0-3); HEMATOCRIT 36.4 % (39.0-53.0); HEMOGLOBIN 12.3 g/dL (13.0-17.5); LYMPH # 0.7 x10^3/uL (1.0-4.8); LYMPH % 16 % (24-48); MEAN CORPUSCULAR HEMOGLOBIN 27 pg (25-35); MEAN CORPUSCULAR HGB CONC 34 g/dL (31-37); MEAN CORPUSCULAR VOLUME 80 fL (79-100); MONO # 0.5 x10^3/uL (0.0-1.1); MONO % 12 % (0-9); NEUT # 3.2 x10^3/uL (1.8-7.7); NEUT % 72 % (31-73); PLATELET COUNT 118 x10^3/uL (140-400); RED BLOOD COUNT 4.57 x10^6/uL (4.30-5.70); RED CELL DISTRIBUTION WIDTH 17.9 % (11.5-14.5); WHITE BLOOD COUNT 4.4 x10^3/uL (4.0-11.0)
[2019-06-14 12:40] LABS: ALBUMIN 3.4 g/dL (3.4-5.0); ALBUMIN/GLOBULIN RATIO 0.8 (1.0-1.7); CALCIUM 8.8 mg/dL (8.5-10.1); CREATININE 0.8 mg/dL (0.7-1.3); GFR 96.7; POTASSIUM 3.7 mmol/L (3.5-5.1); TOTAL BILIRUBIN 2.4 mg/dL (0.2-1.0); TOTAL PROTEIN 7.7 g/dL (6.4-8.2)
[2019-06-14 13:32] LABS: BILIRUBIN,URINE SMALL (NEG); CLARITY,URINE CLEAR; COLOR,URINE ORANGE; NITRITE,URINE NEGATIVE (NEG); PH,URINE 5.5; PROTEIN,URINE NEGATIVE (NEG-TRACE)
[2019-06-14 13:50] LABS: BACTERIA,URINE 0 /HPF (0-FEW); RBC,URINE 0 /HPF (0-2); SPERM,URINE PRESENT /HPF; SQUAMOUS EPITHELIAL CELL,UR OCC /LPF; WBC,URINE RARE /HPF (0-4)
--- NOTE | 2019-06-14 16:28 | RAD ---
Chest, PA and Lateral: Technique: PA and lateral views of the chest were obtained. History: Bronchitis, fever. Comparison: None. Findings: Low lung volumes accentuates heart size and pulmonary vascularity. Mild prominent bilateral interstitial lung markings could be interstitial infiltrates or bronchitis. There is a 1.1 cm nodule identified in the right lung base likely granuloma similar to prior exam from 2010. IMPRESSION: Mild prominent bilateral interstitial lung markings could be interstitial infiltrates or bronchitis. Electronically signed by: Deondre Bey MD (06/14/2019 4:26 PM) [place] [id number]
--- NOTE | 2019-06-14 17:08 | RAD ---
EXAM: PA, oblique, lateral and scaphoid views left wrist DATE: 06/14/2019 12:00 AM INDICATION: Left wrist pain, fall COMPARISON: No Prior FINDINGS: No evidence of acute fracture or dislocation. Apparent round lucency within the scaphoid is likely artifactual. Thumb CMC joint osteophytes arthritis. Atherosclerotic vascular calcifications are seen. IMPRESSION: No evidence of acute fracture or dislocation. Electronically signed by: Jose Murray MD (06/14/2019 5:05 PM) [facility]
== END | disposition home or self-care (01) ==
LOC: LAB 11:56
PROVIDERS: ATTEND Family Medicine
DX: M19.032 Primary osteoarthritis, left wrist (principal); M25.732 Osteophyte, left wrist; I70.298 Other atherosclerosis of native arteries of extremities, other extremity; R91.1 Solitary pulmonary nodule; J40 Bronchitis, not specified as acute or chronic; R50.9 Fever, unspecified
CPT/HCPCS: 36415; 71046; 73110; 80053; 81001; 85025

== ENCOUNTER → 2019-10-25 | Outpatient (CLI) | payer OTHER ==
[2019-07-04 14:46] VITALS: BP 135/66
[~2019-10-25] MED LIST changes: -GLYB-102 PO; +GLYB1TAB20 PO; +LISI1TAB19 PO; +LISI1TAB20 PO; -LISI1TAB5 PO; -LISI1TAB7 PO
[2019-10-25 09:46] LABS: BASO % 0 % (0-3); EOS % 1 % (0-3); HEMATOCRIT 39.2 % (39.0-53.0); HEMOGLOBIN 12.8 g/dL (13.0-17.5); LYMPH # 1.6 x10^3/uL (1.0-4.8); LYMPH % 30 % (24-48); MEAN CORPUSCULAR HEMOGLOBIN 26 pg (25-35); MEAN CORPUSCULAR HGB CONC 33 g/dL (31-37); MEAN CORPUSCULAR VOLUME 80 fL (79-100); MONO # 0.5 x10^3/uL (0.0-1.1); MONO % 8 % (0-9); NEUT # 3.3 x10^3/uL (1.8-7.7); NEUT % 61 % (31-73); PLATELET COUNT 116 x10^3/uL (140-400); RED BLOOD COUNT 4.89 x10^6/uL (4.30-5.70); RED CELL DISTRIBUTION WIDTH 17.5 % (11.5-14.5); WHITE BLOOD COUNT 5.4 x10^3/uL (4.0-11.0)
[2019-10-25 10:08] LABS: ALBUMIN 3.6 g/dL (3.4-5.0); ALBUMIN/GLOBULIN RATIO 0.9 (1.0-1.7); CALCIUM 8.6 mg/dL (8.5-10.1); CREATININE 0.6 mg/dL (0.7-1.3); GFR 134.8; POTASSIUM 3.9 mmol/L (3.5-5.1); TOTAL PROTEIN 7.8 g/dL (6.4-8.2)
[2019-10-25 10:11] LABS: CHOLESTEROL/HDL RATIO 1.9
== END | disposition home or self-care (01) ==
LOC: LAB 09:19
PROVIDERS: ATTEND Family Medicine
DX: Z12.5 Encounter for screening for malignant neoplasm of prostate (principal); E11.9 Type 2 diabetes mellitus without complications; I10 Essential (primary) hypertension; E78.5 Hyperlipidemia, unspecified
CPT/HCPCS: 36415; 80053; 80061; 83036; 84153; 85025; G0103

== ENCOUNTER → 2019-10-31 | Outpatient (CLI) | payer OTHER ==
[2019-07-04 14:46] VITALS: BP 135/66
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
== END | disposition home or self-care (01) ==
LOC: CT 12:31
PROVIDERS: ATTEND Orthopaedic Surgery
DX: M19.072 Primary osteoarthritis, left ankle and foot (principal); M21.862 Other specified acquired deformities of left lower leg; M21.6X2 Other acquired deformities of left foot; E11.40 Type 2 diabetes mellitus with diabetic neuropathy, unspecified; E66.9 Obesity, unspecified; I10 Essential (primary) hypertension
CPT/HCPCS: 73700

== ENCOUNTER → 2019-11-20 | Outpatient (CLI) | payer OTHER ==
[2019-07-04 14:46] VITALS: BP 135/66
--- NOTE | 2019-11-20 11:04 | KCIC ---
Right upper quadrant abdominal ultrasound 11/20/2019 INDICATION: Cirrhosis. COMPARISON: Abdominal ultrasound December 22, 2018 Discussion: Ultrasound evaluation of the right upper quadrant was performed. Static images are seen. Pancreas is partially visualized. Portions. Hepatic echotexture is coarsened. Liver contour appears nodular. No focal hepatic lesions are identified. Liver is mildly enlarged measuring 19 cm longitudinally. The common bile duct is nondilated measuring 4 mm in diameter. Right kidney is unremarkable in appearance measuring centimeters longitudinally. The gallbladder is surgically absent. No ascites is identified. Portal venous flow appears to be in the normal direction. IMPRESSION: Mild hepatomegaly, mildly coarsened hepatic echotexture, and mildly nodular liver contour. In the appropriate setting, findings supportive provided history of cirrhosis. Electronically signed by: Matthias Mauro MD (11/20/2019 11:01 AM) [id number]
== END | disposition home or self-care (01) ==
LOC: KCIC US 09:22
PROVIDERS: ATTEND Internal Medicine Gastroenterology
DX: R16.0 Hepatomegaly, not elsewhere classified (principal); K74.69 Other cirrhosis of liver
CPT/HCPCS: 76705

== ENCOUNTER → 2019-11-21 | Outpatient (CLI) | payer OTHER ==
[2019-07-04 14:46] VITALS: BP 135/66
[2019-11-21 12:43] LABS: ALBUMIN 3.6 g/dL (3.4-5.0); DIRECT BILIRUBIN 0.4 mg/dL (0.0-0.2); TOTAL BILIRUBIN 1.2 mg/dL (0.2-1.0); TOTAL PROTEIN 7.5 g/dL (6.4-8.2)
== END | disposition home or self-care (01) ==
LOC: LAB 11:44
PROVIDERS: ATTEND Internal Medicine Gastroenterology
DX: K74.60 Unspecified cirrhosis of liver (principal)
CPT/HCPCS: 36415; 80076; 82105

== ENCOUNTER → 2020-02-12 | Outpatient (CLI) | payer OTHER ==
[2019-07-04 14:46] VITALS: BP 135/66
[2020-02-12 10:14] LABS: CALCIUM 8.7 mg/dL (8.5-10.1); CREATININE 0.6 mg/dL (0.7-1.3); GFR 134.4; POTASSIUM 3.6 mmol/L (3.5-5.1)
[2020-02-12 23:07] LABS: HEMOGLOBIN A1C 6.9 % (4.8-5.6)
== END | disposition home or self-care (01) ==
LOC: LAB 09:31
PROVIDERS: ATTEND Family Medicine
DX: E11.9 Type 2 diabetes mellitus without complications (principal); I10 Essential (primary) hypertension
CPT/HCPCS: 36415; 80048; 83036

== ENCOUNTER → 2020-10-09 | Outpatient (CLI) | payer OTHER ==
[2019-07-04 14:46] VITALS: BP 135/66
[~2020-10-09] MED LIST changes: -LISI1TAB19 PO; +LISI1TAB37 PO
[2020-10-09 10:30] LABS: ALBUMIN 3.4 g/dL (3.4-5.0); DIRECT BILIRUBIN 0.5 mg/dL (0.0-0.2); TOTAL BILIRUBIN 1.7 mg/dL (0.2-1.0); TOTAL PROTEIN 7.3 g/dL (6.4-8.2)
--- NOTE | 2020-10-09 15:09 | RAD ---
Complete abdominal ultrasound 10/09/2020 INDICATION: Cirrhosis, follow-up exam comparison study: Abdominal ultrasound November 20, 2019 Discussion: Ultrasound evaluation of the abdomen was performed. Static images are submitted to PACS. Pancreas is poorly visualized. Visualized portions of the IVC and aorta are unremarkable. The structures are incompletely visualized. The liver is heterogenous in echotexture. Liver contour appears somewhat nodular. Liver is mildly enlarged measuring 19 cm longitudinally. Portal venous flow appears in the normal direction. The portal vein appears be grossly patent. The common bile duct is nondilated at 5 mm. No focal hepatic lesions are identified by ultrasound. The right kidney is normal in appearance measuring 12.7 cm longitudinally. The spleen is enlarged measuring 17.5 cm longitudinally. Of the left kidney is somewhat poorly visualized but appears to be grossly normal in appearance. Left kidney measures estimated 10.2 cm in length. Small cyst in the superior left kidney, identified on prior exam, was not demonstrated during today's evaluation. Impression:: Cirrhotic liver morphology including hepatomegaly, irregular liver contour, and diffuse heterogeneity of liver parenchyma. Splenomegaly noted. Findings suggest a component of portal hypertension. Electronically signed by: Matthias Mauro MD (10/09/2020 3:06 PM) [id number]
== END ==
LOC: US 09:57
PROVIDERS: ATTEND Internal Medicine Gastroenterology
DX: N28.1 Cyst of kidney, acquired (principal); R16.0 Hepatomegaly, not elsewhere classified; K74.60 Unspecified cirrhosis of liver
CPT/HCPCS: 36415; 76700; 80076; 82105

== ENCOUNTER → 2020-11-20 | Outpatient (CLI) | payer OTHER ==
[2019-07-04 14:46] VITALS: BP 135/66
[~2020-11-20] MED LIST changes: -CLIN300C8 PO; +CLIN300C9 PO
[2020-11-20 11:18] LABS: CALCIUM 8.9 mg/dL (8.5-10.1); CREATININE 0.6 mg/dL (0.7-1.3); GFR 134.4; POTASSIUM 3.8 mmol/L (3.5-5.1)
[2020-11-20 21:08] LABS: HEMOGLOBIN A1C 6.2 % (4.8-5.6)
== END ==
LOC: LAB 10:32
PROVIDERS: ATTEND Family Medicine
DX: I10 Essential (primary) hypertension (principal); E11.9 Type 2 diabetes mellitus without complications
CPT/HCPCS: 36415; 80048; 83036